=== PATIENT | male | born 1955 | race Caucasian/White ===

== ENCOUNTER 2018-08-04 19:14 | Emergency (ER) | payer BC ==
[2018-08-04 19:18] VITALS: Ht 193 cm
[2018-08-05 01:07] VITALS: BP 135/76
== END 2018-08-05 01:07 | disposition home or self-care (01) ==
LOC: ED 19:14
DX: S81.812A Laceration without foreign body, left lower leg, initial encounter (principal); R03.0 Elevated blood-pressure reading, without diagnosis of hypertension; W26.8XXA Contact with other sharp object(s), not elsewhere classified, initial encounter; Y93.89 Activity, other specified; Y92.89 Other specified places as the place of occurrence of the external cause; Y99.8 Other external cause status
CPT/HCPCS: J2001; Q0092